=== PATIENT | female | born 1955 | race African-American/Black ===

== ENCOUNTER 2018-12-31 22:01 | Inpatient (IN) | payer MEDICARE ==
[~2018-12-31] VITALS: Ht 172.7 cm; Wt 138.0 kg
[2018-12-31] MEDS ORDERED: MORPHINE SULFATE 4 MG/ML CPJ (NOT FOR IM USE) IV STA (22:51)
[2018-12-31] MEDS ORDERED: ONDANSETRON HCL 4MG/2ML INJ IV STA (22:51)
[2018-12-31] MEDS ORDERED: SODIUM CHLORIDE 0.9% 1,000 ML IV ONE (22:51)
[2018-12-31 23:32] LABS: BASOPHILS % 0.5 % (0.0-2.0); EOSINOPHILS % 0.4 % (0.0-5.0); HEMATOCRIT. 43.5 % (36.0-48.0); HEMOGLOBIN. 14.4 g/dL (12.0-16.0); MEAN CORPUSCULAR HEMOGLOBIN 28.8 pg (28.0-32.0); MEAN CORPUSCULAR VOLUME 87.3 fL (81.0-99.0); MONOCYTES % 3.8 % (2.0-8.0); NEUTROPHILS % 69.3 % (40.0-76.0); PLATELET 226 x1000/uL (130-400); RED BLOOD CELL COUNT 4.98 mill/uL (4.2-5.4)
[2018-12-31 23:37] LABS: CHLORIDE 101 mEq/L (98-107)
[2018-12-31 23:41] LABS: PROTHROMBIN TIME 10.4 sec (9.6-11.0)
[2019-01-01] VITALS (13 sets, daily range): BP systolic 98–205; BP diastolic 75–114
[2019-01-01] MEDS ORDERED: SODIUM CHLORIDE 0.9% 1000ML BAG (SEPSIS BOLUS) IV ONE (00:15)
[2019-01-01] MEDS ORDERED: PIPERACILLIN/TAZ 3.375G PREMIX 50 ML IV SCH (00:34)
[2019-01-01] MEDS ORDERED: VANCOMYCIN 1 G PREMIX 200 ML IV SCH (00:35)
[2019-01-01] MEDS ORDERED: IOHEXOL-300 100 ML BOTTLE ONE (01:13)
[2019-01-01] MEDS ORDERED: ONDANSETRON HCL 4MG/2ML INJ IV ONE (02:00)
[2019-01-01 03:24] LABS: CLARITY URINE CLOUDY (CLEAR); COLOR URINE YELLOW (YELLOW); KETONES URINE NEGATIVE (NEGATIVE); LEUKOCYTE ESTERASE URINE 1+ (NEGATIVE); NITRITE URINE NEGATIVE (NEGATIVE); OCCULT BLOOD URINE NEGATIVE (NEGATIVE); PH URINE 7.5 (4.5-8.0); PROTEIN URINE 1+ (NEGATIVE); SPECIFIC GRAVITY URINE 1.031 (1.005-1.030); UROBILINOGEN URINE 0.2 E.U./dL (0.2-1.0)
[2019-01-01] MEDS ORDERED: MORPHINE SULFATE 4 MG/ML CPJ (NOT FOR IM USE) IV ONE (04:00)
[2019-01-01] MEDS ORDERED: DOCUSATE SODIUM 100MG CAPSULE PO PRN (06:45)
[2019-01-01] MEDS ORDERED: GUAIFENESIN 200MG/10ML SUGAR FREE UDC PO PRN (06:45)
[2019-01-01] MEDS ORDERED: HYDROCODONE/ACETAMINOPHEN 10/325MG TABLET PO PRN (06:45)
[2019-01-01] MEDS ORDERED: IPRATROPIUM/ALBUTEROL 0.5-3(2.5)MG/3ML NEB INH PRN (06:45)
[2019-01-01] MEDS ORDERED: DIPHENHYDRAMINE 50MG/ML VIAL IV PRN (06:45)
[2019-01-01] MEDS ORDERED: CLONIDINE 0.1MG TABLET PO PRN (06:45)
[2019-01-01] MEDS ORDERED: NA PHOS,M-B/NA PHOS,DI-BA ENEMA 118ML PR PRN (06:45)
[2019-01-01] MEDS ORDERED: LORAZEPAM 2MG/ML CPJ IV PRN (06:45)
[2019-01-01] MEDS: HYDROMORPHONE HCL/PF 2MG/ML CPJ IV PRN ×4 (07:06→20:45)
[2019-01-01] MEDS: ONDANSETRON HCL 4MG/2ML INJ IV PRN ×2 (07:08→20:45)
[2019-01-01] MEDS ORDERED: POTASSIUM CHLORIDE INJ 40 MEQ in DEXT 5% WATER 250 ML IV NR (08:00)
[2019-01-01] MEDS ORDERED: VANCOMYCIN 1 G PREMIX 200 ML IV NR (08:00)
[2019-01-01] MEDS: PIPERACILLIN/TAZ 3.375G PREMIX 50 ML IV SCH ×3 (08:43→20:46)
[2019-01-01] MEDS: DEXT 5%/0.45% NACL 1000ML 1,000 ML IV SCH ×2 (08:55→20:46)
[2019-01-01 09:37] LABS: CHLORIDE 104 mEq/L (98-107)
[2019-01-01] MEDS ORDERED: VANCOMYCIN 2,000 MG in DEXT 5% WATER 500 ML IV SCH (10:00)
[2019-01-01] MEDS: HYDRALAZINE 20MG/ML VIAL IV PRN ×2 (10:51→18:36)
[2019-01-01] MEDS ORDERED: LIDOCAINE HCL 1% 20ML VIAL (Pyxis) INJ ONE (10:51)
[2019-01-01] MEDS: VANCOMYCIN 1500MG in DEXTROSE 5% WATER 250ML IV SCH (12:24)
[2019-01-01] MEDS: SODIUM CHLORIDE 0.9% INJ 3ML FLUSH IVF SCH ×2 (13:29→20:47)
[2019-01-01 17:13] LABS: LDL CHOLESTEROL 130 mg/dL (5-100)
[2019-01-01 17:15] LABS: CREATINE KINASE MB FRACTION 5.3 ng/mL (0.5-3.6); HDL CHOLESTEROL 89 mg/dL (40-59)
[2019-01-01 17:27] LABS: CREATINE KINASE 1404 IU/L (26-192)
[2019-01-01 23:39] LABS: CREATINE KINASE MB FRACTION 3.8 ng/mL (0.5-3.6)
[2019-01-01 23:49] LABS: CREATINE KINASE 1171 IU/L (26-192)
[2019-01-02] VITALS (12 sets, daily range): BP systolic 129–158; BP diastolic 38–102
[2019-01-02] MEDS ORDERED: VANCOMYCIN 1500MG in DEXTROSE 5% WATER 250ML IV SCH (06:00)
[2019-01-02] MEDS: VANCOMYCIN 1500MG in DEXTROSE 5% WATER 250ML IV SCH (06:19)
[2019-01-02] MEDS: PIPERACILLIN/TAZ 3.375G PREMIX 50 ML IV SCH ×4 (06:19→21:17)
[2019-01-02] MEDS: SODIUM CHLORIDE 0.9% INJ 3ML FLUSH IVF SCH ×3 (06:25→21:17)
[2019-01-02 08:03] LABS: HEMATOCRIT. 40.6 % (36.0-48.0); HEMOGLOBIN. 13.5 g/dL (12.0-16.0); MEAN CORPUSCULAR HEMOGLOBIN 28.6 pg (28.0-32.0); MEAN CORPUSCULAR VOLUME 86.1 fL (81.0-99.0); MEAN PLATELET VOLUME 8.3 fl (7.4-10.4); PLATELET 225 x1000/uL (130-400); RED BLOOD CELL COUNT 4.72 mill/uL (4.2-5.4); RED CELL DISTRIBUTION WIDTH 16.2 % (11.6-14.6)
[2019-01-02 08:30] LABS: CHLORIDE 102 mEq/L (98-107)
[2019-01-02 08:42] LABS: T4 FREE 1.27 ng/dL (0.76-1.46)
[2019-01-02] MEDS: DEXT 5%/0.45% NACL 1000ML 1,000 ML IV SCH (09:05)
[2019-01-02 11:11] LABS: PLATELET ESTIMATE NORMAL
[2019-01-02] MEDS ORDERED: VANCOMYCIN 1500MG in DEXTROSE 5% WATER 250ML IV NR (18:00)
[2019-01-02] MEDS: METOPROLOL TARTRATE 25MG TABLET PO SCH ×2 (18:21→21:20)
[2019-01-02] MEDS: ONDANSETRON HCL 4MG/2ML INJ IV PRN (21:16)
[2019-01-02] MEDS: ACETAMINOPHEN 325MG TABLET PO PRN (21:17)
[2019-01-03] VITALS (12 sets, daily range): BP systolic 98–148; BP diastolic 47–82
[2019-01-03] MEDS: DEXT 5%/0.45% NACL 1000ML 1,000 ML IV SCH
[2019-01-03] MEDS: VANCOMYCIN 1 G PREMIX 200 ML IV SCH ×2 (01:19→08:57)
[2019-01-03] MEDS: PIPERACILLIN/TAZ 3.375G PREMIX 50 ML IV SCH ×2 (02:30→08:57)
[2019-01-03] MEDS: SODIUM CHLORIDE 0.9% INJ 3ML FLUSH IVF SCH ×3 (05:55→21:39)
[2019-01-03] MEDS: MAGNESIUM/ALUMINUM HYDROXIDE/SIMETHICONE 30ML UDC PO PRN ×2 (06:29→23:22)
[2019-01-03 08:52] LABS: HEMATOCRIT. 40.7 % (36.0-48.0); HEMOGLOBIN. 13.4 g/dL (12.0-16.0); MEAN CORPUSCULAR HEMOGLOBIN 28.7 pg (28.0-32.0); MEAN PLATELET VOLUME 8.6 fl (7.4-10.4); PLATELET 231 x1000/uL (130-400); RED BLOOD CELL COUNT 4.67 mill/uL (4.2-5.4); RED CELL DISTRIBUTION WIDTH 16.6 % (11.6-14.6)
[2019-01-03] MEDS: METOPROLOL TARTRATE 25MG TABLET PO SCH ×2 (08:57→21:39)
[2019-01-03 09:59] LABS: PLATELET ESTIMATE NORMAL
[2019-01-03] MEDS: PIPERACILLIN/TAZ 2.25G PREMIX 50 ML IV SCH (17:37)
[2019-01-03] MEDS: SODIUM CHLORIDE 0.9% 1,000 ML IV SCH (17:37)
[2019-01-03] MEDS: ONDANSETRON HCL 4MG/2ML INJ IV PRN (19:46)
[2019-01-04] VITALS (20 sets, daily range): BP systolic 111–153; BP diastolic 59–83
[2019-01-04] MEDS: ONDANSETRON HCL 4MG/2ML INJ IV PRN ×2 (01:11→06:18)
[2019-01-04] MEDS: PIPERACILLIN/TAZ 2.25G PREMIX 50 ML IV SCH ×3 (01:26→20:57)
[2019-01-04] MEDS: SODIUM CHLORIDE 0.9% INJ 3ML FLUSH IVF SCH ×3 (06:00→22:00)
[2019-01-04 07:08] LABS: HEMATOCRIT. 38.7 % (36.0-48.0); HEMOGLOBIN. 12.9 g/dL (12.0-16.0); MEAN CORPUSCULAR HEMOGLOBIN 28.9 pg (28.0-32.0); MEAN CORPUSCULAR VOLUME 86.8 fL (81.0-99.0); MEAN PLATELET VOLUME 8.5 fl (7.4-10.4); PLATELET 237 x1000/uL (130-400); RED BLOOD CELL COUNT 4.45 mill/uL (4.2-5.4); RED CELL DISTRIBUTION WIDTH 16.2 % (11.6-14.6)
[2019-01-04] MEDS: SODIUM CHLORIDE 0.9% 1,000 ML IV SCH ×3 (08:01→22:44)
[2019-01-04] MEDS: METOPROLOL TARTRATE 25MG TABLET PO SCH ×2 (10:29→21:00)
[2019-01-04 11:22] LABS: PLATELET ESTIMATE NORMAL
[2019-01-04 13:23] LABS: BG BASE EXCESS -0.9 mmol/L (-2.0-2.0); BG CARBOXYHEMOGLOBIN 0.8 % (0.5-1.5); BG DEOXYHEMOGLOBIN 9.1 % (0.0-5.0); BG FRACTION INSPIRED OXYGEN 28; BG METHEMOGLOBIN 0.3 % (0.0-1.5); BG OXYGEN SATURATION 90.8 % (92.0-98.5); BG OXYHEMOGLOBIN 89.8 % (94.0-97.0); BG PCO2 35.5 mmHg (35.0-45.0); BG PH 7.429 (7.350-7.450); BG PO2 59.3 mmHg (75.0-100.0); BG SAMPLE SITE RIGHT RADIAL; BG TOTAL HEMOGLOBIN 13.1 g/dL (12.0-18.0); BG VENT MODE NASAL CANNULA
[2019-01-04] MEDS ORDERED: NOREPINEPHRINE 4 MG in DEXT 5% WATER 246 ML IV PRN (16:00)
[2019-01-04 18:28] LABS: CREATINE KINASE 222 IU/L (26-192)
[2019-01-05] VITALS (34 sets, daily range): BP systolic 92–171; BP diastolic 42–90
[2019-01-05] MEDS: PIPERACILLIN/TAZ 2.25G PREMIX 50 ML IV SCH ×3 (04:00→20:10)
[2019-01-05] MEDS ORDERED: LIDOCAINE HCL 1% 20ML VIAL (Pyxis) INJ ONE (08:04)
[2019-01-05] MEDS: METOPROLOL TARTRATE 25MG TABLET PO SCH ×2 (09:00→20:10)
[2019-01-05] MEDS: DEXT 5%/0.9% NACL 1,000 ML IV SCH (09:16)
[2019-01-05 12:08] LABS: HEPATITIS B SURFACE AB < 3.1 mIU/mL
[2019-01-05 12:19] LABS: HEPATITIS B SURFACE ANTIGEN NEGATIVE
[2019-01-05 12:48] LABS: HEPATITIS A AB IGM NEGATIVE (NEGATIVE)
[2019-01-06] VITALS (24 sets, daily range): BP systolic 100–164; BP diastolic 60–90
[2019-01-06] MEDS: PIPERACILLIN/TAZ 2.25G PREMIX 50 ML IV SCH ×3 (04:15→19:45)
[2019-01-06] MEDS: DEXT 5%/0.9% NACL 1,000 ML IV SCH (04:18)
[2019-01-06 05:12] LABS: BASOPHILS % 0.3 % (0.0-2.0); EOSINOPHILS % 1.2 % (0.0-5.0); HEMATOCRIT. 32.3 % (36.0-48.0); LYMPHOCYTES % 7.6 % (20.0-50.0); MEAN CORPUSCULAR VOLUME 85.2 fL (81.0-99.0); MEAN PLATELET VOLUME 8.2 fl (7.4-10.4); MONOCYTES % 13.6 % (2.0-8.0); NEUTROPHILS % 77.3 % (40.0-76.0); PLATELET 222 x1000/uL (130-400); RED CELL DISTRIBUTION WIDTH 16.7 % (11.6-14.6)
[2019-01-06] MEDS ORDERED: DIATR MEGLU/DIATRIZOATE SOLN 120ML ONE ×2 (08:36→09:08)
[2019-01-06] MEDS: METOPROLOL TARTRATE 25MG TABLET PO SCH ×2 (09:00→20:48)
[2019-01-06 14:32] LABS: BG BASE EXCESS -0.3 mmol/L (-2.0-2.0); BG CARBOXYHEMOGLOBIN 0.4 % (0.5-1.5); BG DEOXYHEMOGLOBIN 0.9 % (0.0-5.0); BG FRACTION INSPIRED OXYGEN 99.8; BG HCO3 ACT 24.3 mmol/L (22.0-26.0); BG METHEMOGLOBIN 0.2 % (0.0-1.5); BG OXYGEN SATURATION 99.1 % (92.0-98.5); BG OXYHEMOGLOBIN 98.5 % (94.0-97.0); BG PCO2 39.8 mmHg (35.0-45.0); BG PH 7.404 (7.350-7.450); BG PO2 271.8 mmHg (75.0-100.0); BG SAMPLE SITE RIGHT RADIAL; BG TOTAL HEMOGLOBIN 11.6 g/dL (12.0-18.0); BG VENT MODE MASK - NRB
[2019-01-06 19:12] LABS: ANTI-NUCLEAR ANTIBODIES DIRECT Negative (Negative)
[2019-01-06] MEDS: ACETAMINOPHEN 325MG TABLET PO PRN (20:59)
[2019-01-07] VITALS (39 sets, daily range): BP systolic 110–153; BP diastolic 42–85
[2019-01-07] MEDS: PIPERACILLIN/TAZ 2.25G PREMIX 50 ML IV SCH ×3 (03:26→22:09)
[2019-01-07] MEDS: DEXT 5%/0.9% NACL 1,000 ML IV SCH (03:28)
[2019-01-07 05:38] LABS: BASOPHILS % 0.2 % (0.0-2.0); EOSINOPHILS % 0.8 % (0.0-5.0); HEMATOCRIT. 30.7 % (36.0-48.0); HEMOGLOBIN. 10.6 g/dL (12.0-16.0); LYMPHOCYTES % 8.4 % (20.0-50.0); MEAN CORPUSCULAR VOLUME 84.3 fL (81.0-99.0); MEAN PLATELET VOLUME 8.3 fl (7.4-10.4); MONOCYTES % 11.6 % (2.0-8.0); PLATELET 220 x1000/uL (130-400); RED BLOOD CELL COUNT 3.64 mill/uL (4.2-5.4); RED CELL DISTRIBUTION WIDTH 16.6 % (11.6-14.6)
[2019-01-07 06:05] LABS: PHOSPHORUS 3.8 mg/dL (2.5-4.9)
[2019-01-07 08:17] LABS: COMPLEMENT C3 175 mg/dL (82-167)
[2019-01-07] MEDS: METOPROLOL TARTRATE 25MG TABLET PO SCH ×2 (09:00→20:53)
[2019-01-07] MEDS: BLOOD SUGAR DIAGNOSTIC STRIP TEST SCH (18:10)
[2019-01-07] MEDS: FAT EMULSIONS 500 ML IV SCH (20:52)
[2019-01-07] MEDS ORDERED: TOTAL PARENTERAL NUTRITION 1,600 ML IV SCH (21:00)
[2019-01-08] VITALS (24 sets, daily range): BP systolic 120–160; BP diastolic 53–76
[2019-01-08] MEDS: PIPERACILLIN/TAZ 2.25G PREMIX 50 ML IV SCH ×3 (03:54→20:20)
[2019-01-08 05:29] LABS: HEMATOCRIT. 34.6 % (36.0-48.0); HEMOGLOBIN. 12.1 g/dL (12.0-16.0); MEAN CORPUSCULAR HEMOGLOBIN 30.2 pg (28.0-32.0); MEAN PLATELET VOLUME 8.3 fl (7.4-10.4); PLATELET 251 x1000/uL (130-400); RED BLOOD CELL COUNT 4.02 mill/uL (4.2-5.4); RED CELL DISTRIBUTION WIDTH 16.8 % (11.6-14.6)
[2019-01-08] MEDS: BLOOD SUGAR DIAGNOSTIC STRIP TEST SCH ×4 (05:37→17:40)
[2019-01-08 06:48] LABS: PLATELET ESTIMATE NORMAL
[2019-01-08] MEDS ORDERED: DEXTROSE 50% WATER 50ML SYRINGE IV PRN (07:45)
[2019-01-08] MEDS: METOPROLOL TARTRATE 25MG TABLET PO SCH ×2 (08:14→21:56)
[2019-01-08] MEDS: INSULIN LISPRO (LOW DOSE) 100 UNITS/ML SUBCUT SCH ×2 (12:52→18:31)
[2019-01-08] MEDS: SODIUM CHLORIDE 0.9% INJ 3ML FLUSH IVF SCH ×2 (13:41→22:00)
[2019-01-08] MEDS ORDERED: TOTAL PARENTERAL NUTRITION 1,600 ML IV SCH (21:00)
[2019-01-09] VITALS (26 sets, daily range): BP systolic 102–142; BP diastolic 52–73
[2019-01-09] MEDS: INSULIN LISPRO (LOW DOSE) 100 UNITS/ML SUBCUT SCH ×4 (00:18→18:48)
[2019-01-09] MEDS: SODIUM CHLORIDE 0.9% INJ 3ML FLUSH IVF SCH ×3 (06:00→22:00)
[2019-01-09] MEDS: BLOOD SUGAR DIAGNOSTIC STRIP TEST SCH ×4 (06:05→18:00)
[2019-01-09 06:18] LABS: HEMATOCRIT. 29.6 % (36.0-48.0); MEAN CORPUSCULAR HEMOGLOBIN 28.9 pg (28.0-32.0); MEAN CORPUSCULAR VOLUME 85.3 fL (81.0-99.0); MEAN PLATELET VOLUME 8.7 fl (7.4-10.4); PLATELET 230 x1000/uL (130-400); RED BLOOD CELL COUNT 3.47 mill/uL (4.2-5.4); RED CELL DISTRIBUTION WIDTH 16.6 % (11.6-14.6)
[2019-01-09] MEDS: METOPROLOL TARTRATE 25MG TABLET PO SCH ×2 (09:34→21:53)
[2019-01-09 10:36] LABS: PLATELET ESTIMATE NORMAL
[2019-01-09] MEDS ORDERED: TOTAL PARENTERAL NUTRITION 1,600 ML IV SCH (21:00)
[2019-01-09] MEDS ORDERED: PIPERACILLIN/TAZ 2.25G PREMIX 50 ML IV SCH (21:00)
[2019-01-09] MEDS: PIPERACILLIN/TAZ 2.25G PREMIX 50 ML IV SCH (21:52)
[2019-01-10] VITALS (13 sets, daily range): BP systolic 133–158; BP diastolic 60–89
[2019-01-10] MEDS: INSULIN LISPRO (LOW DOSE) 100 UNITS/ML SUBCUT SCH ×4 (01:06→13:27)
[2019-01-10] MEDS: BLOOD SUGAR DIAGNOSTIC STRIP TEST SCH ×4 (05:53→18:36)
[2019-01-10] MEDS: SODIUM CHLORIDE 0.9% INJ 3ML FLUSH IVF SCH ×3 (06:00→21:45)
[2019-01-10 06:26] LABS: BASOPHILS % 0.3 % (0.0-2.0); EOSINOPHILS % 0.8 % (0.0-5.0); HEMATOCRIT. 32.7 % (36.0-48.0); HEMOGLOBIN. 10.8 g/dL (12.0-16.0); LYMPHOCYTES % 7.3 % (20.0-50.0); MEAN CORPUSCULAR HEMOGLOBIN 28.3 pg (28.0-32.0); MEAN CORPUSCULAR VOLUME 85.7 fL (81.0-99.0); MEAN PLATELET VOLUME 8.9 fl (7.4-10.4); MONOCYTES % 10.5 % (2.0-8.0); NEUTROPHILS % 81.1 % (40.0-76.0); PLATELET 244 x1000/uL (130-400); RED BLOOD CELL COUNT 3.82 mill/uL (4.2-5.4); RED CELL DISTRIBUTION WIDTH 17.4 % (11.6-14.6)
[2019-01-10] MEDS: METOPROLOL TARTRATE 25MG TABLET PO SCH ×2 (09:37→21:44)
[2019-01-10] MEDS: PIPERACILLIN/TAZ 2.25G PREMIX 50 ML IV SCH ×2 (09:38→21:43)
[2019-01-10] MEDS ORDERED: INSULIN LISPRO 100 UNITS/ML SUBCUT SCH (13:00)
[2019-01-10] MEDS: INSULIN LISPRO 100 UNITS/ML SUBCUT SCH (18:49)
[2019-01-10] MEDS ORDERED: TOTAL PARENTERAL NUTRITION 1,600 ML IV SCH (21:00)
[2019-01-10] MEDS ORDERED: INSULIN GLARGINE UD 100 UNITS/ML SYR SUBCUT SCH (22:00)
[2019-01-10] MEDS: INSULIN GLARGINE UD 100 UNITS/ML SYR SUBCUT SCH (22:28)
[2019-01-11] VITALS (13 sets, daily range): BP systolic 108–143; BP diastolic 53–76
[2019-01-11] MEDS: INSULIN LISPRO 100 UNITS/ML SUBCUT SCH ×5 (00:08→21:18)
[2019-01-11] MEDS: BLOOD SUGAR DIAGNOSTIC STRIP TEST SCH ×4 (00:09→17:26)
[2019-01-11 05:22] LABS: BASOPHILS % 0.5 % (0.0-2.0); EOSINOPHILS % 0.4 % (0.0-5.0); HEMATOCRIT. 31.5 % (36.0-48.0); HEMOGLOBIN. 10.5 g/dL (12.0-16.0); LYMPHOCYTES % 7.6 % (20.0-50.0); MEAN CORPUSCULAR HEMOGLOBIN 28.4 pg (28.0-32.0); MEAN CORPUSCULAR VOLUME 84.9 fL (81.0-99.0); MEAN PLATELET VOLUME 8.8 fl (7.4-10.4); MONOCYTES % 11.9 % (2.0-8.0); NEUTROPHILS % 79.6 % (40.0-76.0); PLATELET 238 x1000/uL (130-400); RED BLOOD CELL COUNT 3.71 mill/uL (4.2-5.4); RED CELL DISTRIBUTION WIDTH 16.7 % (11.6-14.6)
[2019-01-11] MEDS: SODIUM CHLORIDE 0.9% INJ 3ML FLUSH IVF SCH ×3 (06:00→21:20)
[2019-01-11] MEDS: METOPROLOL TARTRATE 25MG TABLET PO SCH ×2 (09:00→20:07)
[2019-01-11] MEDS: PIPERACILLIN/TAZ 2.25G PREMIX 50 ML IV SCH ×2 (09:25→20:05)
[2019-01-11] MEDS: FAT EMULSIONS 500 ML IV SCH (20:05)
[2019-01-11] MEDS ORDERED: TOTAL PARENTERAL NUTRITION 1,600 ML IV SCH (21:00)
[2019-01-11] MEDS: INSULIN GLARGINE UD 100 UNITS/ML SYR SUBCUT SCH (21:19)
[2019-01-12] VITALS (11 sets, daily range): BP systolic 133–178; BP diastolic 54–81
[2019-01-12] MEDS: INSULIN LISPRO 100 UNITS/ML SUBCUT SCH ×4 (03:27→17:43)
[2019-01-12] MEDS: SODIUM CHLORIDE 0.9% INJ 3ML FLUSH IVF SCH ×2 (06:17→14:55)
[2019-01-12] MEDS: BLOOD SUGAR DIAGNOSTIC STRIP TEST SCH ×4 (06:17→18:13)
[2019-01-12] MEDS: PIPERACILLIN/TAZ 2.25G PREMIX 50 ML IV SCH (09:37)
[2019-01-12] MEDS: METOPROLOL TARTRATE 25MG TABLET PO SCH (09:38)
[2019-01-12 09:58] LABS: HEMATOCRIT 31.1 % (36.0-48.0); HEMOGLOBIN 10.6 g/dL (12.0-16.0); MEAN CORPUSCULAR HEMOGLOBIN 28.4 pg (28.0-32.0); MEAN CORPUSCULAR VOLUME 83.9 fL (81.0-99.0); PLATELET 273 x1000/uL (130-400); RED BLOOD CELL COUNT 3.71 mill/uL (4.2-5.4); RED CELL DISTRIBUTION WIDTH 17.1 % (11.6-14.6)
[2019-01-12] MEDS: HYDRALAZINE 20MG/ML VIAL IV PRN (17:42)
[2019-01-12] MEDS ORDERED: TOTAL PARENTERAL NUTRITION 1,600 ML IV SCH (21:00)
== END 2019-01-12 18:05 | disposition short-term general hospital (02) | DRG 871 ==
LOC: ER 22:01 → 5EST 01-01 02:27 → EDBEDREQDT 01-01 02:32 → EDBEDREQ 01-01 02:32 → EDBEDREQTM 01-01 02:32 → EDBEDREQSVC 01-01 02:32 → ENRESERV 01-01 02:59 → 5WST 01-04 11:08 → MICUSO 01-04 13:56 → 5EST 01-09 03:00
PROVIDERS: ADMIT Internal Medicine; ATTEND Internal Medicine
PROC: 02HV33Z Insertion of Infusion Device into Superior Vena Cava, Percutaneous Approach (ICD-10-PCS; 2019-01-01)
PROC: B548ZZA Ultrasonography of Superior Vena Cava, Guidance (ICD-10-PCS; 2019-01-01)
PROC: 0D9670Z Drainage of Stomach with Drainage Device, Via Natural or Artificial Opening (ICD-10-PCS; 2019-01-01)
PROC: 5A1D70Z Performance of Urinary Filtration, Intermittent, Less than 6 Hours Per Day (ICD-10-PCS; 2019-01-04)
PROC: 5A1D70Z Performance of Urinary Filtration, Intermittent, Less than 6 Hours Per Day (ICD-10-PCS; 2019-01-05)
PROC: 02HV33Z Insertion of Infusion Device into Superior Vena Cava, Percutaneous Approach (ICD-10-PCS; 2019-01-05)
PROC: B548ZZA Ultrasonography of Superior Vena Cava, Guidance (ICD-10-PCS; 2019-01-05)
PROC: 5A1D70Z Performance of Urinary Filtration, Intermittent, Less than 6 Hours Per Day (ICD-10-PCS; 2019-01-07)
PROC: 5A1D70Z Performance of Urinary Filtration, Intermittent, Less than 6 Hours Per Day (ICD-10-PCS; 2019-01-09)
PROC: 5A1D70Z Performance of Urinary Filtration, Intermittent, Less than 6 Hours Per Day (ICD-10-PCS; principal; 2019-01-11)
DX: A41.9 Sepsis, unspecified organism (principal); N17.0 Acute kidney failure with tubular necrosis; G93.41 Metabolic encephalopathy; E87.2 Acidosis; M62.82 Rhabdomyolysis; N39.0 Urinary tract infection, site not specified; E46 Unspecified protein-calorie malnutrition; Z68.42 Body mass index [BMI] 45.0-49.9, adult; K42.0 Umbilical hernia with obstruction, without gangrene; E87.6 Hypokalemia; F41.9 Anxiety disorder, unspecified; I10 Essential (primary) hypertension; K21.9 Gastro-esophageal reflux disease without esophagitis; D64.9 Anemia, unspecified; E86.9 Volume depletion, unspecified; I49.3 Ventricular premature depolarization; I25.10 Atherosclerotic heart disease of native coronary artery without angina pectoris; E86.0 Dehydration; E78.5 Hyperlipidemia, unspecified; M19.90 Unspecified osteoarthritis, unspecified site; K43.9 Ventral hernia without obstruction or gangrene; I95.9 Hypotension, unspecified; E66.01 Morbid (severe) obesity due to excess calories; H92.09 Otalgia, unspecified ear
CPT/HCPCS: 36415; 36556; 36573; 36600; 71045; 74018; 74176; 74177; 74250; 76770; 76937; 80048; 80061; 80202; 82375; 82550; 82553; 82805; 82962; 83036; 83605; 83735; 83880; 84100; 84439; 84443; 84484; 85027; 85379; 86038; 86160; 86705; 86706; 86709; 86803; 86850; 86900; 87077; 87340; 93005; 93306; 93970; 96374; 99285; C1725; C1752; J0360; J1170; J1815; J2270; J2405; J2543; J3370; J3480; J3490; J7030; J7040; J7042; J7050; J7060; Q9963; Q9967